=== PATIENT | male | born 2000 | race Caucasian/White ===

== ENCOUNTER 2022-09-09 00:11 | Emergency (ER) | payer MEDICAID, SELFPAY ==
[2022-09-09 00:15] VITALS: BP 116/69; PULSE 86; O2SAT 97; BMI 24.0
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
[2022-09-09 00:24] VITALS: BP 119/65; PULSE 82; RESP 19; TEMP 37.2; O2SAT 93
--- NOTE | 2022-09-09 00:24 | MHC.EDTECH ---
PT stated he does need to urinate but does not want to give a urine sample. Pt given ice water and Lucia Kamara made aware
--- OUTSIDE RECORDS SUMMARY | 2022-09-09 01:22 | XMS_ITS | Continuity of Care Document ---
:2000 Author Organization [facility] Address [address] [place] [id number]- Care Team Providers Name Role Phone Jaspal DE ANDA, Shane Norwood Primary Care Physician Encounter [facility] [place] Date(s): 03/04/21 - 04/03/21 [facility] [address] [place] [id number] Attending Physician: Bailee Lim Admitting Physician: AdmtrBailee Referring Physician: Admtr, Ar8 Allergies, Adverse Reactions, Alerts Substance Reaction Severity Status NKA Active Medications Aerochamber See Instructions, # 1 each, Maintenance, use as instructed with albuterol, 09/09/18 21:03:13 EST, Compound Start Date: 09/09/18 Status: OrderedAlbuterol 0 Refills, Maintenance, 09/20/13 10:36:13 Start Date: 09/20/13 Status: Orderedalbuterol 0.083% inhalation solution 3 mL = 2.5 mg, Neb, Every 6 hours, PRN as needed for wheezing, # 90 mL, 0 Refills, Maintenance, 09/09/18 21:02:35 EST, Solution Start Date: 09/09/18 Status: Orderedalbuterol CFC free 90 mcg/inh inhalation aerosol 2, puffs, Inhalation, Every 4 hours, PRN, # 18 Gm, Refills 0, Tot. Refills 0, Maintenance, 09/09/18 21:02:58 EST, Aerosol, Print Requisition, Compound Start Date: 09/09/18 Status: Ordereddexamethasone 2 mg oral tablet 5 tablet = 10 mg, By Mouth, Once, with food. Take on Monday 09/11 if asthma symptoms are not improved, # 5 tablet, 0 Refills, Soft Stop, 09/09/18 21:01:46 EST, Tablet Start Date: 09/09/18 Status: OrderedFocalin By Mouth, 2 times a day, 0 Refills, Maintenance, 09/20/13 10:35:39 Start Date: 09/20/13 Status: OrderedMelatonin By Mouth, Daily at bedtime, 0 Refills, Maintenance, 09/20/13 10:36:32 Start Date: 09/20/13 Status: OrderedZofran ODT 4 mg oral tablet, disintegrating 1 tablet = 4 mg, By Mouth, 4 times a day, PRN Vomiting, # 12 tablet, 0 Refills, Maintenance, 09/09/18 21:04:14 EST Start Date: 09/09/18 Stop Date: 09/12/18 Status: Ordered Problem List Condition Effective Dates Status Health Status Informant Asthma(Confirmed) Active ADHD (attention deficit hyperactivity Active disorder)(Confirmed) Non-cardiac chest pain(Confirmed) Active Short stature disorder(Confirmed) Active Social History Social History Type Response Smoking Status Never smoker entered on: 06/08/15 Sex
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
--- OUTSIDE RECORDS SUMMARY | 2022-09-09 01:22 | XMS_ITS | Continuity of Care Document ---
:2000 Author Organization [facility] Address [address] [place] [id number]- Care Team Providers Name Role Phone Jaspal DE ANDA, Shane Norwood Primary Care Physician Encounter [facility] [place] Date(s): 12/24/20 - 04/03/21 [facility] [address] [place] [id number] Attending Physician: Larry DE ANDA, Shannon Mcadams Admitting Physician: Shannon Juarez MD Referring Physician: Jimmie Stockton MD Allergies, Adverse Reactions, Alerts Substance Reaction [...]
--- NOTE | 2022-09-09 05:23 | PC.NURSE ---
patient ambulatory with steady gait out of treatment room
== END 2022-09-09 05:24 | disposition home or self-care (01) ==
PROVIDERS: Emergency Provider Internal Medicine
DX: F10.129 Alcohol abuse with intoxication, unspecified (principal)
CPT/HCPCS: 99282; 99283

== ENCOUNTER 2022-11-27 12:00 | Emergency (ER) | payer MEDICAID, SELFPAY ==
--- NOTE | ~2022-11-27 | XR_ITS ---
EXAMINATION: XR chest 2V CLINICAL INFORMATION: Reason for Exam Cough COMPARISON: 2019 TECHNIQUE: XR chest 2V Lungs and Daniela: Both lungs are clear. Pleura: Normal. Costophrenic angles are sharp. No pneumothorax. Heart: The heart is normal in size. Mediastinum: The mediastinum is within normal limits.. Bones: Skeletal structures included are normal for patient's age. XR/XR chest 2V IMPRESSION: No radiographic evidence of acute cardiopulmonary disease.
[2022-11-27 12:17] VITALS: BP 128/80; PULSE 79; O2SAT 98
[2022-11-27 12:19] VITALS: BP 128/80; PULSE 91; RESP 16; TEMP 36.9; O2SAT 97; BMI 16.8
--- NOTE | 2022-11-27 12:25 | PC.NURSE ---
pt a&o x4 speaking in full sentances, was on 4Lo2 for comfort, NC removed with provider at bedside- pt SpO2 97% RA
--- NOTE | 2022-11-27 12:35 | PC.NURSE ---
pt oob independently to X Ray with steady gait, no increased work of breathing noted
[2022-11-27] MEDS: Albuterol/Iprat 2.5/0.5MG 3 ML AMPUL.NEB INHALE (12:57)
[2022-11-27 13:04] VITALS: PULSE 91; RESP 18; O2SAT 97
--- NOTE | 2022-11-27 13:47 | ED.ASTHMA ---
HPI - Asthma General Chief Complaint: Asthma Stated Complaint: SOB,98% RA, 4LPM O2 FOR COMFORT PER EMS Time Seen by Provider: 11/27/22 12:18 History of Present Illness HPI Narrative: Patient complains of chest tightness and wheezing similar to prior asthma flares over the last 24 hours with lots of coughing which is common when he gets an asthma flare he denies any fever denies any chest pain, there is no nausea no vomiting no calf pain or swelling no leg swelling Related Data Home Medications Medication Instructions Recorded Confirmed hydroxyzine pamoate 25 mg capsule 25 mg PO BID 11/27/22 11/27/22 zolpidem 10 mg tablet 10 mg PO BEDTIME 11/27/22 11/27/22 Previous Rx's Medication Instructions Recorded albuterol sulfate 90 mcg/actuation 2 puff inhalation Q4-6H PRN 11/27/22 aerosol inhaler shortness of breath or wheezing #8.5 grams prednisone 20 mg tablet 60 mg PO DAILY 3 days #9 tabs 11/27/22 Allergies Allergy/AdvReac Type Severity Reaction Status Date / Time No Known Allergies Allergy Unverified 05/07/20 16:47 [facility] Past Medical History Source: nursing notes reviewed Social History Social History Alcohol intake: current Alcohol intake frequency: holidays/special occasions only Smoked in Last 30 Days: Yes Use of substances other than those prescribed or required for medical reasons: No Advance Directives: No Advance Directives Information Provided: No Physical Exam Vital Signs: Vital Signs: Last Vital Signs Temp 98.4 F 11/27/22 12:19 Pulse 69 11/27/22 13:48 Resp 16 11/27/22 13:48 BP 117/34 L 11/27/22 13:48 Pulse Ox 99 11/27/22 13:48 O2 Del Method Room Air 11/27/22 13:48 BMI result Body Mass Index 16.8 General appearance no acute distress The eyes no redness or discharge The pharynx is clear without redness swelling or exudate The nose the sinuses are nontender Neck is supple Chest had diminished breath sounds bilaterally with good air entry no wheezing auscultated Heart no murmur Abdomen soft nontender Extremities no edema no calf tenderness no swelling Skin no rash Course Course Course Narrative: Chest x-ray was negative Patient who had decreased air movement but no wheezing to start with after treatment had good full symmetric air movement with no adventitious sounds, he felt much better continues to breathe at 16 oxygen sat normal and well-appearing patient no respiratory distress is discharged Chest x-ray was done and was normal Medications Administered Discontinued Medications Generic Name Dose Route Start Last Admin Trade Name Freq PRN Reason Stop Dose Admin Albuterol/Ipratropium 3 ml 11/27/22 12:48 11/27/22 12:57 Albuterol/Iprat 2.5/0.5mg 3 Ml Ampul.Neb INHALE 11/27/22 12:49 3 ml ONCE ONE Administration Prednisone 60 mg 11/27/22 13:51 11/27/22 13:57 Prednisone 20 Mg Tablet PO 11/27/22 13:52 60 mg ONCE ONE Administration Discharge Plan Discharge Clinical Impression: Asthma with acute exacerbation Patient Disposition: Home, Self-Care Additional Instructions: Breathing improved with treatment in the ER Chest x-ray was normal no pneumonia Use prednisone and albuterol as needed Return any time for difficulty breathing any worse condition or any concerns Prescriptions: New albuterol sulfate 90 mcg/actuation HFA aerosol inhaler 2 puff inhalation Q4-6H PRN (Reason: shortness of breath or wheezing) Qty: 8.5 0RF prednisone 20 mg tablet 60 mg PO DAILY 3 Days Qty: 9 0RF No Action zolpidem 10 mg tablet 10 mg PO BEDTIME hydroxyzine pamoate 25 mg capsule 25 mg PO BID Interventions: ED Discharge Assessment Last Done: 11/27/22 14:00 Discharge Date/Time: 11/27/22 14:00
[2022-11-27 13:48] VITALS: BP 117/34; PULSE 69; RESP 16; O2SAT 99
[2022-11-27] MEDS: predniSONE 20 MG TABLET 60 MG PO (13:57)
--- NOTE | 2022-11-27 13:59 | PC.NURSE ---
pt medicated per MAR reminded pt he does not need to repeat pred dose today- pt verbalized understanding vss on dc
== END 2022-11-27 14:00 | disposition home or self-care (01) ==
PROVIDERS: Emergency Provider Emergency Medicine; PCP Nurse Practitioner Primary Care
DX: J45.901 Unspecified asthma with (acute) exacerbation (principal); R06.02 Shortness of breath; R05.9 Cough, unspecified
CPT/HCPCS: 71046; 94640; 99284

== ENCOUNTER 2022-11-27 21:12 | Emergency (ER) | payer MEDICAID, SELFPAY ==
--- NOTE | 2022-11-27 08:18 | ECG_ITS ---
Test Reason : CHEST PAIN Blood Pressure : / mmHG Vent. Rate : 121 BPM Atrial Rate : 121 BPM P-R Int : 122 ms QRS Dur : 074 ms QT Int : 298 ms P-R-T Axes : 059 070 030 degrees QTc Int : 423 ms Sinus tachycardia Otherwise normal ECG No previous ECGs available Referred By: Ezra Sue Electronically Signed By:CARMEN MEJIA MD
[2022-11-27 21:25] VITALS: BP 125/75; PULSE 125; RESP 18; TEMP 36.8; O2SAT 99
[2022-11-27 21:31] VITALS: BP 132/68; PULSE 130; O2SAT 100; BMI 19.3
--- NOTE | 2022-11-27 21:37 | ED_ITS ---
HPI - Chest Pain General Chief Complaint: Chest Pain Stated Complaint: Chest Pressure Time Seen by Provider: 11/27/22 21:19 Source: patient Mode of arrival: EMS Limitations: no limitations History of Present Illness HPI narrative: Pain history of asthma just discharged from the ER went home complaining of sharp chest pain on left side with palpitation saturating 99% room air heart rate on arrival 120 sinus tachycardia no fever Related Data Home Medications Medication Instructions Recorded Confirmed hydroxyzine pamoate 25 mg capsule 25 mg PO BID 11/27/22 11/27/22 zolpidem 10 mg tablet 10 mg PO BEDTIME 11/27/22 11/27/22 Previous Rx's Medication Instructions Recorded albuterol sulfate 90 mcg/actuation 2 puff inhalation Q4-6H PRN 11/27/22 aerosol inhaler shortness of breath or wheezing #8.5 grams prednisone 20 mg tablet 60 mg PO DAILY 3 days #9 tabs 11/27/22 Allergies Allergy/AdvReac Type Severity Reaction Status Date / Time No Known Allergies Allergy Unverified 05/07/20 16:47 Review of Systems Review of Systems: Yes all other systems are reviewed and are negative [facility] Social History Social History Alcohol intake: current Alcohol intake frequency: holidays/special occasions only Smoked in Last 30 Days: Yes Use of substances other than those prescribed or required for medical reasons: No Advance Directives: No Advance Directives Information Provided: No Physical Exam Vital Signs: Vital Signs: Last Vital Signs Temp 98.3 F 11/27/22 21:25 Pulse 96 11/27/22 23:09 Resp 18 11/27/22 23:09 BP 129/75 11/27/22 22:01 Pulse Ox 97 11/27/22 23:09 O2 Del Method Room Air 11/27/22 23:09 BMI result Body Mass Index 19.3 Appearance: Alert. Oriented X3. No acute distress. Eyes: PERRLA, No Nystagmus ENT: Pharynx normal. Oral Mucosa moist Neck: Normal inspection. Neck supple. CVS: Sinus tachycardia, no murmur rub or gallop Pulses normal. Respiratory: No respiratory distress. Equal air entry bilateral, no wheezing/rales/rhonchi Abdomen: Soft and nontender. Bowel sounds are present, no mass palpable, no CVA tenderness Skin: Skin warm and dry. Normal skin color. Normal skin turgor. Extremities: No lower extremity edema. No calf tenderness Neuro: Oriented X 3. No motor deficit. No sensory deficit.No cerebellar signs , cranial nerves II-XII intact Medications Administered Discontinued Medications Generic Name Dose Route Start Last Admin Trade Name Freq PRN Reason Stop Dose Admin Ibuprofen 600 mg 11/27/22 21:44 11/27/22 21:57 Ibuprofen 600 Mg Tablet PO 11/27/22 21:45 600 mg ONCE ONE Administration Metoprolol Tartrate 25 mg 11/27/22 21:44 11/27/22 21:57 Metoprolol Tartrate 25 Mg Tablet PO 11/27/22 21:45 25 mg ONCE ONE Administration Protocol Medical Decision Making Medical Decision Making [facility] Narrative: Patient atypical chest pain likely musculoskeletal lungs are clear heart rate improved after given Lopressor 25 mg p.o. likely because of prednisone and treatments he was tachycardiac Independent Interpretation I performed an independent interpretation of an: EKG Interpretation: Sciatica day with heart rate of 121 beats per minute normal interval normal axis no acute ST T wave changes Discharge Plan Discharge Clinical Impression: Atypical chest pain, Heart palpitations Patient Disposition: Home, Self-Care Instructions: Heart Palpitations (ED), Chest Wall Pain (ED) Additional Instructions: Drink plenty of fluids Follow with PCP if any concern Report to the ER if passing out episode Prescriptions: No Action albuterol sulfate 90 mcg/actuation HFA aerosol inhaler 2 puff inhalation Q4-6H PRN (Reason: shortness of breath or wheezing) Qty: 8.5 0RF prednisone 20 mg tablet 60 mg PO DAILY 3 Days Qty: 9 0RF zolpidem 10 mg tablet 10 mg PO BEDTIME hydroxyzine pamoate 25 mg capsule 25 mg PO BID
[2022-11-27 21:43] VITALS: PULSE 122
[2022-11-27] MEDS: Ibuprofen 600 MG TABLET PO (21:57)
[2022-11-27] MEDS: Metoprolol Tartrate 25 MG TABLET PO (21:57)
[2022-11-27 22:01] VITALS: BP 129/75; PULSE 124; RESP 18; O2SAT 99
[2022-11-27 23:09] VITALS: PULSE 96; RESP 18; O2SAT 97
== END 2022-11-27 23:26 | disposition home or self-care (01) ==
PROVIDERS: Emergency Provider Internal Medicine; PCP Nurse Practitioner Primary Care
DX: R07.89 Other chest pain (principal); R00.2 Palpitations; Z79.899 Other long term (current) drug therapy
CPT/HCPCS: 93005; 99285

== ENCOUNTER 2023-07-18 21:33 | Emergency (ER) | payer MEDICAID, SELFPAY ==
--- NOTE | 2023-07-18 | ECG_ITS ---
Test Reason : CHEST PAIN Blood Pressure : / mmHG Vent. Rate : 134 BPM Atrial Rate : 134 BPM P-R Int : 122 ms QRS Dur : 090 ms QT Int : 286 ms P-R-T Axes : 062 082 030 degrees QTc Int : 427 ms Sinus tachycardia Nonspecific T wave abnormality Abnormal ECG When compared with ECG of 27-NOV-2022 21:20, T wave amplitude has decreased in Inferior leads Lateral leads Referred By: Generic ED Physician Electronically Signed By:JINA SHETH MD
--- NOTE | ~2023-07-18 | XR_ITS ---
EXAMINATION: XR CHEST CLINICAL INFORMATION: Dyspnea. COMPARISON: 11/27/2022. TECHNIQUE: Frontal view of the chest was obtained. FINDINGS: No significant abnormality is noted involving the heart, lungs, mediastinum, bony thorax or soft tissues. XR/XR chest 1V IMPRESSION: Unremarkable examination.
[2023-07-18 21:41] VITALS: BP 119/68; PULSE 119; O2SAT 100
[2023-07-18 21:52] VITALS: BP 127/73; PULSE 128; RESP 18; TEMP 38.4; O2SAT 100; BMI 22.9
[2023-07-18 22:25] LABS: COVID-19 Test Positive (Negative); IDNOW Serial# 08D9AD1C; IDNOW Serial# BCCEAD1C; Strep A Nucleic Acid Negative (Negative)
[2023-07-18] MEDS: Acetaminophen 325 MG TABLET 975 MG PO (22:29)
[2023-07-18 22:35] LABS: IDNOW Serial# 58CA691E; Influenza A Negative (Negative); Influenza B2 Negative (Negative)
--- NOTE | 2023-07-18 23:52 | PC.NURSE ---
pt not in waiting room at this time
== END 2023-07-18 23:54 | disposition left against medical advice (07) ==
PROVIDERS: Emergency Provider Emergency Medicine
DX: U07.1 COVID-19 (principal)
CPT/HCPCS: 71045; 87502; 87635; 87651; 93005; 99283